=== PATIENT | female | born 1990 | race Hispanic/Latino ===

== ENCOUNTER 2018-06-03 11:26 | Inpatient (IN) | payer OTHER ==
[~2018-06-03] VITALS: Ht 170.2 cm; Wt 69.5 kg
[2018-06-03 14:39] LABS: CLARITY,URINE SL CLOUDY (CLEAR); COLOR,URINE YELLOW (YELLOW); LEUKOCYTE ESTERASE ,URINE TRACE (NEGATIVE); NITRITE,URINE POSITIVE (NEGATIVE); PROTEIN,URINE DIPSTICK 1+ (NEGATIVE)
[2018-06-03 14:40] LABS: BILIRUBIN,URINE NEGATIVE (NEGATIVE); KETONES,URINE NEGATIVE (NEGATIVE); URINE UROBILINOGEN 0.2 mg/dL (0.2 - 1)
[2018-06-03] MEDS ORDERED: ACETAMINOPHEN 325 MG TAB PO ONE (14:45)
[2018-06-03] MEDS ORDERED: PYRIDIUM100 MG PO (14:47)
[2018-06-03] MEDS ORDERED: CEFDINIR300 MG PO (14:47)
[2018-06-03 15:02] LABS: BACTERIA,URINE MANY /HPF; EPITHELIAL CELLS,URINE FEW /LPF; RBC,URINE >50 /HPF (0-5)
[2018-06-03 15:08] LABS: PREGNANCY TEST, URINE NEGATIVE (NEGATIVE)
--- NOTE | 2018-06-03 16:54 | Diagnostic Imaging Report ---
CT Abdomen and Pelvis without contrast INDICATION: Nausea, vomiting, right groin pain. History of appendectomy TECHNIQUE: Thin collimation axial images obtained from the diaphragm to the level of the pubic symphysis without nonionic intravenous contrast. Dose reduction techniques used: Automated exposure control, adjustment of the mAs and/or kVp according to patient size, standardized low-dose protocol, and/or iterative reconstruction technique. RADIATION DOSE: Total DLP: 288.59 mGy*cm Estimated effective dose: (DLP x 0.015 x size factor) mSv CTDIvol has been reviewed. It is below the limits set by the Radiation Protocol Committee (RPC). COMPARISON: None. ABDOMEN FINDINGS: Lung Bases: Clear. The visualized portion of the mediastinum is normal. Liver: Normal in attenuation without mass. Gallbladder: Present and contains a small amount of dependently layering sludge. No calcified gallstones.. No ductal dilatation. Pancreas: Normal attenuation without mass. Spleen: Normal size without mass. Adrenal Glands: Nodular thickening of the right adrenal gland. Attenuation is higher the will be expected for an adenoma. Mild thickening of the left adrenal gland without discrete mass. Kidneys: Right: No evidence of calculus. There is renal edema and mild perinephric inflammation extending around the proximal ureter. No soft tissue mass. Left: Punctate calculus in the upper pole. No cortical mass or hydronephrosis Lymph Nodes: No enlarged abdominal retroperitoneal lymph nodes.. Aorta: Normal in diameter. PELVIS FINDINGS: Bowel: Stomach: Normal. Small Bowel: Normal in caliber with normal wall thickness. Large Bowel: Normal in caliber with normal wall thickness. There are surgical sutures at the base of the cecum. Appendix: Absent. Bladder: Well distended. No mural thickening or evidence of calculus. Ureters: No ureteral dilatation. The right ureter is mildly distended to the common iliac artery. No evidence of calculus. The ureter distal to this is normal in diameter without calculus. The left ureter is normal in diameter throughout its course. No calculus. The uterus is present and normal in morphology. No adnexal mass. Bones: Unremarkable for age. Soft tissues: Unremarkable. IMPRESSION: 1. Edema of the right kidney with perinephric inflammation without fe hydroureteronephrosis or evidence of calculus. Urinary tract infection should be considered. A recently passed stone cannot be excluded. 2. Tiny left intrarenal calculus. No obstructive uropathy. 3. No evidence for bowel obstruction or inflammation. Appendectomy. Signed by: Dr. Klaudia Douglas MD on 06/03/2018 4:51 PM
[2018-06-03] MEDS ORDERED: CEFTRIAXONE SOD 1 GM/NS 50 ML 50 ML IV NR (17:15)
--- NOTE | 2018-06-03 17:16 | NUR ---
PATIENT TO ROOM 4
[2018-06-03] MEDS ORDERED: SODIUM CHLORIDE 0.9% 1000ML 1,000 ML IV STA ×2 (17:25→19:26)
[2018-06-03] MEDS ORDERED: ACETAMINOPHEN 325 MG TAB ONE (17:55)
[2018-06-03 18:41] LABS: BASOPHILS # (AUTO) 0.1 (0.0-0.1); BASOPHILS % 0.3 % (0.0-1.0); EOSINOPHILS # (AUTO) 0.1 (0.0-0.4); EOSINOPHILS % 0.2 % (0.0-6.0); HEMATOCRIT 39.9 % (34.2-44.1); HEMOGLOBIN 13.6 g/dL (12.0-16.0); LYMPHOCYTES # (AUTO) 0.9 (1.0-3.2); LYMPHOCYTES % 4.1 % (18.0-39.1); MEAN CORPUSCULAR HEMOGLOBIN 29.6 pg (28-32); MEAN CORPUSCULAR HGB CONC 34.1 g/dL (31-35); MEAN CORPUSCULAR VOLUME 86.9 fL (81-99); MONOCYTES # (AUTO) 1.3 (0.2-0.8); MONOCYTES % 5.5 % (4.4-11.3); NEUTROPHILS # (AUTO) 20.7 (2.1-6.9); NEUTROPHILS % 89.5 % (38.7-80.0); PLATELET COUNT 255 x10e3/uL (140-360); RED BLOOD COUNT 4.59 x10e6/uL (3.6-5.1); RED CELL DISTRIBUTION WIDTH 12.8 % (11.7-14.4)
--- NOTE | 2018-06-03 18:47 | NUR ---
DR. CARRASQUILLO AT BEDSIDE RE EVALUATING PATIENT. MULIPLE IV ATTEMPTS
[2018-06-03 19:13] LABS: ANION GAP 14.6 mmol/L (8-16); BLOOD UREA NITROGEN 8 mg/dL (7-26); BUN/CREATININE RATIO 12 (6-25); CALCIUM 9.8 mg/dL (8.4-10.2); CARBON DIOXIDE 20 mmol/L (22-29); CHLORIDE 102 mmol/L (98-107); CREATININE, SERUM 0.67 mg/dL (0.57-1.11); EST GLOMERULAR FILTRATION RATE > 60 ML/MIN (60-); GLUCOSE 121 mg/dL (74-118); POTASSIUM 3.6 mmol/L (3.5-5.1); SODIUM 133 mmol/L (136-145)
--- NOTE | 2018-06-03 19:17 | NUR ---
BEDSIDE REPORT TO PATRICIA Rojas
[2018-06-03] MEDS ORDERED: ONDANSETRON HCL INJ 2MG/ML 2ML 2 MG/ML VIAL IV PRN (19:30)
[2018-06-03] MEDS ORDERED: MORPHINE SULFATE INJ 4 MG/ML INJ 1ML IV PRN (19:45)
[2018-06-03] MEDS: CEFTRIAXONE SOD 1 GM/NS 50 ML 50 ML IV SCH ×2 (19:53→21:18)
--- OUTSIDE RECORDS SUMMARY | 2018-06-03 20:04 | XMS REPORT ---
Author Author [facility] Address Unknown Phone Unavailable Care Team Providers Care Clinical Psychologist Licensed Name Role Phone Cheyanne CARRASQUILLO Unavailable Unavailable Problems This patient has no known problems. Allergies, Adverse Reactions, Alerts This patient has no known allergies or adverse reactions. Medications This patient has no known medications. Results Test Description Test Time Test Comments Text Results Atomic Results Result Comments CT ABDOMEN/PELVIS WO 2018-06-03 16:38:[address] [address] Patient Name: LUKAS GONZALEZ MR #: [id number] : 1990 Age/Sex: 27/F Req #: [id number] Adm Physician: Ordered by: MANE MCNULTY ENGINEERING DIRECTOR Report #: [id number] Location: ER Room/Bed: Procedure: [id number] CT/CT ABDOMEN/PELVIS WO Exam Date: 06/03/18 Exam Time: 1553 REPORT STATUS: Signed CT Abdomen and Pelvis without contrast INDICATION: Nausea, vomiting, right groin pain. History of appendectomy TECHNIQUE: Thin collimation axial images obtained from the diaphragm to the level of the pubic symphysis without nonionic intravenous contrast. Dose reduction techniques used: Automated exposure control, adjustment of the mAs and/or kVp according to patient size, standardized low-dose protocol, and/or iterative reconstruction technique. RADIATION DOSE: Total DLP: 288.59 mGy*cm Estimated effective dose: (DLP x 0.015 x size factor) mSv CTDIvol has been reviewed. It is below the limits set by the Radiation Protocol Committee (RPC). COMPARISON: None. ABDOMEN FINDINGS: Lung Bases: Clear. The visualized portion of the mediastinum is normal. Liver: Normal in attenuation without mass. Gallbladder: Present and contains a small amount of dependently layering sludge. No calcified gallstones.. No ductal dilatation. Pancreas: Normal attenuation without mass. Spleen: Normal size without mass. Adrenal Glands: Nodular thickening of the right adrenal gland. Attenuation is higher the will be expected for an adenoma. Mild thickening of the left adrenal gland without discrete mass. Kidneys: Right: No evidence of calculus. There is renal edema and mild perinephric inflammation extending around the proximal ureter. No soft tissue mass. Left: Punctate calculus in the upper pole. No cortical mass or hydronephrosis Lymph Nodes: No enlarged abdominal retroperitoneal lymph nodes.. Aorta: Normal in diameter. PELVIS FINDINGS: Bowel: Stomach: Normal. Small Bowel: Normal in caliber with normal wall thickness. Large Bowel: Normal in caliber with normal wall thickness. There are surgical sutures at the base of the cecum. Appendix: Absent. Bladder: Well distended. No mural thickening or evidence of calculus. Ureters: No ureteral dilatation. The right ureter is mildly distended to the common iliac artery. No evidence of calculus. The ureter distal to this is normal in diameter without calculus. The left ureter is normal in diameter throughout its course. No calculus. The uterus is present and normal in morphology. No adnexal mass. Bones: Unremarkable for age. Soft tissues: Unremarkable. IMPRESSION: 1. Edema of the right kidney with perinephric inflammation without fe hydroureteronephrosis or evidence of calculus. Urinary tract infection should be considered. A recently passed stone cannot be excluded. 2. Tiny left intrarenal calculus. No obstructive uropathy. 3. No evidence for bowel obstruction or inflammation. Appendectomy. Signed by: Dr. Lonnie Douglas MD on 06/03/2018 4:51 PM Dictated By: LONNIE DOUGLAS MD [id number] Transcribed By: HILDA on 06/03/181 COPY TO: MANE MCNULTY NP
[2018-06-03] MEDS ORDERED: no home meds (20:23)
[2018-06-03] MEDS: SODIUM CHLORIDE 0.9% 1000ML 1,000 ML IV SCH (21:17)
[2018-06-03 22:00] VITALS: BP 122/72
[2018-06-03 22:24] LABS: BAND NEUTROPHILS % (MANUAL) 2 %; LYMPHOCYTES % (MANUAL) 6 % (19-48); NEUTROPHILS % (MANUAL) 87 % (40-74)
[2018-06-03 22:25] LABS: MONOCYTES % (MANUAL) 5 % (3.4-9.0); PLATELET CLUMPS FEW; PLATELET ESTIMATE ADEQUATE; PLATELET MORPHOLOGY COMMENT NORMAL; RBC MORPHOLOGY COMMENT NORMAL
[2018-06-03 23:06] VITALS: BP 122/72
[2018-06-04] VITALS (9 sets, daily range): BP systolic 112–120; BP diastolic 58–67
[2018-06-04] MEDS: ACETAMINOPHEN 325 MG TAB PO PRN ×4 (00:40→20:30)
--- NOTE | 2018-06-04 04:06 | NUR ---
At 2200, patient arrived to unit by a stretcher and escorted by MEKA Mcbride. Assisted patient to room comfortable. Oriented to surrounding. Call light within reach. No sob noted. No acute distress noted. Patient in stable condition, will continue to monitor.
[2018-06-04 05:50] LABS: BASOPHILS # (AUTO) 0.1 (0.0-0.1); BASOPHILS % 0.4 % (0.0-1.0); EOSINOPHILS % 0.2 % (0.0-6.0); HEMATOCRIT 36.9 % (34.2-44.1); HEMOGLOBIN 12.2 g/dL (12.0-16.0); LYMPHOCYTES # (AUTO) 1.5 (1.0-3.2); LYMPHOCYTES % 8.7 % (18.0-39.1); MEAN CORPUSCULAR HEMOGLOBIN 29.4 pg (28-32); MEAN CORPUSCULAR HGB CONC 33.1 g/dL (31-35); MEAN CORPUSCULAR VOLUME 88.9 fL (81-99); MONOCYTES % 6.1 % (4.4-11.3); NEUTROPHILS # (AUTO) 14.1 (2.1-6.9); NEUTROPHILS % 84.1 % (38.7-80.0); PLATELET COUNT 297 x10e3/uL (140-360); RED BLOOD COUNT 4.15 x10e6/uL (3.6-5.1)
[2018-06-04 06:16] LABS: ALANINE AMINOTRANSFERASE 15 IU/L (0-55); ALBUMIN 3.3 g/dL (3.5-5.0); ALBUMIN/GLOBULIN RATIO 0.9 (0.8-2.0); ALKALINE PHOSPHATASE 101 IU/L (40-150); ANION GAP 10.4 mmol/L (8-16); BLOOD UREA NITROGEN 5 mg/dL (7-26); BUN/CREATININE RATIO 8 (6-25); CALCIUM 8.5 mg/dL (8.4-10.2); CARBON DIOXIDE 20 mmol/L (22-29); CHLORIDE 111 mmol/L (98-107); CREATININE, SERUM 0.63 mg/dL (0.57-1.11); EST GLOMERULAR FILTRATION RATE > 60 ML/MIN (60-); GLUCOSE 104 mg/dL (74-118); POTASSIUM 3.4 mmol/L (3.5-5.1); SODIUM 138 mmol/L (136-145)
[2018-06-04 06:34] LABS: MAGNESIUM 2.1 MG/DL (1.3-2.1); PHOSPHORUS 2.3 MG/DL (2.3-4.7)
[2018-06-04 06:56] LABS: THYROID STIMULATING HORMONE 1.228 uIU/mL (0.350-4.940)
--- NOTE | 2018-06-04 07:10 | NUR ---
PATIENT ASSISTED TO THE RESTROOM AND BACK TO BED, NO DISTRESS NOTED. IV FLUID INFUSING ORDERED. BED IN LOWER POSITION, CALL LIGHT AT REACH.
[2018-06-04] MEDS: CEFTRIAXONE SOD 1 GM/NS 50 ML 50 ML IV SCH ×2 (08:10→20:44)
[2018-06-04] MEDS: SODIUM CHLORIDE 0.9% 1000ML 1,000 ML IV SCH ×4 (08:46→22:06)
--- NOTE | 2018-06-04 12:00 | NUR ---
PATIENT NOTED WITH TEMPERATURE OF 100.9, PRN TYLENOL GIVEN. TEMP RECHECKED WITH THE READING OF 98.3. WILL CONTINUE TO MONITOR.
--- NOTE | 2018-06-04 13:16 | NUR ---
SPOKE WITH DR YOUNGBLOOD'S WINDLACE MACHINE OPERATOR REGARDING ABNORMAL LAB, NO NEW ORDER RECEIVED.
[2018-06-04] MEDS ORDERED: POTASSIUM CHLORIDE 20 MEQ TAB CR PO NR ×2 (16:01→18:00)
--- NOTE | 2018-06-04 16:02 | NUR ---
DR YOUNGBLOOD IN TO SEE PATIENT. NOTIFIED OF ABNORMAL LAB RESULT, NEW ORDER RECEIVED.
--- NOTE | 2018-06-04 19:38 | NUR ---
RECEIVED PT IN BED AOX3 .DENIES PAIN RESPIRATIONS ARE EVEN AND UNLABORED PT HAS FEVER CALL LIGHT WITH IN REACH .CONTINUE TO MONITOR
[2018-06-05] VITALS (7 sets, daily range): BP systolic 92–123; BP diastolic 60–77
[2018-06-05] MEDS: ACETAMINOPHEN 325 MG TAB PO PRN ×2 (04:10→22:01)
--- NOTE | 2018-06-05 05:33 | NUR ---
TEMPERATURE GOES UP AND DOWN .TEM 100.1 AND GIVEN TYLENOL .FAMILY AT THE BEDSIDE .CALL LIGHT WITH IN REACH.CONTINUE TO MONITOR
[2018-06-05 07:01] LABS: BASOPHILS # (AUTO) 0.1 (0.0-0.1); BASOPHILS % 0.6 % (0.0-1.0); EOSINOPHILS # (AUTO) 0.1 (0.0-0.4); EOSINOPHILS % 1.3 % (0.0-6.0); HEMATOCRIT 35.5 % (34.2-44.1); HEMOGLOBIN 11.6 g/dL (12.0-16.0); LYMPHOCYTES # (AUTO) 1.5 (1.0-3.2); LYMPHOCYTES % 14.3 % (18.0-39.1); MEAN CORPUSCULAR HEMOGLOBIN 28.9 pg (28-32); MEAN CORPUSCULAR HGB CONC 32.7 g/dL (31-35); MEAN CORPUSCULAR VOLUME 88.3 fL (81-99); MONOCYTES % 9.3 % (4.4-11.3); NEUTROPHILS % 74.1 % (38.7-80.0); PLATELET COUNT 254 x10e3/uL (140-360); RED BLOOD COUNT 4.02 x10e6/uL (3.6-5.1); RED CELL DISTRIBUTION WIDTH 13.1 % (11.7-14.4)
[2018-06-05] MEDS: SODIUM CHLORIDE 0.9% 1000ML 1,000 ML IV SCH ×3 (07:15→18:00)
--- NOTE | 2018-06-05 07:19 | NUR ---
REPORT GIVEN TO THE ON COMING NURSE
[2018-06-05 07:24] LABS: ANION GAP 9.3 mmol/L (8-16); BLOOD UREA NITROGEN < 5 mg/dL (7-26); CALCIUM 8.6 mg/dL (8.4-10.2); CARBON DIOXIDE 20 mmol/L (22-29); CHLORIDE 109 mmol/L (98-107); CREATININE, SERUM 0.55 mg/dL (0.57-1.11); EST GLOMERULAR FILTRATION RATE > 60 ML/MIN (60-); GLUCOSE 89 mg/dL (74-118); POTASSIUM 3.3 mmol/L (3.5-5.1); SODIUM 135 mmol/L (136-145)
[2018-06-05 07:30] LABS: BUN/CREATININE RATIO 9 (6-25)
[2018-06-05] MEDS: CEFTRIAXONE SOD 1 GM/NS 50 ML 50 ML IV SCH ×2 (08:30→18:22)
[2018-06-05] MEDS: ASCORBIC ACID 500 MG TAB PO SCH ×2 (08:30→18:00)
--- NOTE | 2018-06-05 08:30 | NUR ---
Pt received resting in bed. Alert and oriented x4 with saline lock #20 in left wrist with fluid infusing. Oriented to staff and surroundings, encouraged to press call james if help needed. Emotional support given. Fall precautions maintained. Will monitor
[2018-06-05] MEDS ORDERED: POTASSIUM CHLORIDE 20 MEQ TAB CR PO ONE (12:15)
[2018-06-05] MEDS: PHENAZOPYRIDINE HCL 100 MG TAB PO SCH ×2 (13:00→18:00)
[2018-06-05 13:40] LABS: CLARITY,URINE SL CLOUDY (CLEAR); COLOR,URINE YELLOW (YELLOW)
[2018-06-05 13:41] LABS: BILIRUBIN,URINE NEGATIVE (NEGATIVE); KETONES,URINE NEGATIVE (NEGATIVE); LEUKOCYTE ESTERASE ,URINE NEGATIVE (NEGATIVE); NITRITE,URINE NEGATIVE (NEGATIVE); PROTEIN,URINE DIPSTICK NEGATIVE (NEGATIVE); URINE UROBILINOGEN 0.2 mg/dL (0.2 - 1)
[2018-06-05 13:51] LABS: EPITHELIAL CELLS,URINE FEW /LPF; RBC,URINE 0-5 /HPF (0-5)
--- NOTE | 2018-06-05 17:50 | Diagnostic Imaging Report ---
Examination: Single AP view of the chest. COMPARISON: None. INDICATION: Intermittent fever, pyelonephritis. IMPRESSION: 1. Lines and Tubes: None 2. Lungs are grossly clear. No consolidation or effusion. 3. Cardiomediastinal silhouette is normal. Pulmonary vasculature is normal. 4. No acute bony abnormalities. Signed by: Dr. Dominic Nunn M.D. on 06/05/2018 5:46 PM
--- NOTE | 2018-06-05 19:31 | NUR ---
Pt resting in bed with family at bedside. Emotional support given. Call james within reach. Endorsed to oncoming nurse.
--- NOTE | 2018-06-05 19:37 | NUR ---
RECEIVE DPT IN BED AOX3 .DENIES PAIN .NO ACUTE DISTRESS NOTED .FAMILY AT THE BEDSIDE .CALL LIGHT WITH IN REACH .CONTINUE TO MONITOR
[2018-06-06] VITALS: BP 117/66
[2018-06-06 03:51] LABS: BASOPHILS # (AUTO) 0.1 (0.0-0.1); BASOPHILS % 0.8 % (0.0-1.0); EOSINOPHILS # (AUTO) 0.2 (0.0-0.4); EOSINOPHILS % 2.2 % (0.0-6.0); HEMATOCRIT 38.4 % (34.2-44.1); HEMOGLOBIN 12.8 g/dL (12.0-16.0); LYMPHOCYTES # (AUTO) 2.5 (1.0-3.2); LYMPHOCYTES % 27.3 % (18.0-39.1); MEAN CORPUSCULAR HEMOGLOBIN 29.2 pg (28-32); MEAN CORPUSCULAR HGB CONC 33.3 g/dL (31-35); MEAN CORPUSCULAR VOLUME 87.5 fL (81-99); MONOCYTES # (AUTO) 1.1 (0.2-0.8); MONOCYTES % 11.6 % (4.4-11.3); NEUTROPHILS # (AUTO) 5.2 (2.1-6.9); NEUTROPHILS % 57.5 % (38.7-80.0); PLATELET COUNT 278 x10e3/uL (140-360); RED BLOOD COUNT 4.39 x10e6/uL (3.6-5.1)
[2018-06-06 04:00] VITALS: BP 110/84
[2018-06-06 04:08] LABS: ANION GAP 10.3 mmol/L (8-16); BLOOD UREA NITROGEN 5 mg/dL (7-26); BUN/CREATININE RATIO 9 (6-25); CALCIUM 8.7 mg/dL (8.4-10.2); CARBON DIOXIDE 19 mmol/L (22-29); CHLORIDE 109 mmol/L (98-107); CREATININE, SERUM 0.54 mg/dL (0.57-1.11); EST GLOMERULAR FILTRATION RATE > 60 ML/MIN (60-); GLUCOSE 90 mg/dL (74-118); LIPASE 5 U/L (8-78); POTASSIUM 3.3 mmol/L (3.5-5.1); SODIUM 135 mmol/L (136-145)
--- NOTE | 2018-06-06 05:53 | NUR ---
PT RESTING .NO ACUTE DISTRESS NOTED .CALL LIGHT WITH IN REACH .CONTINUE TO MONITOR
[2018-06-06] MEDS: CEFTRIAXONE SOD 1 GM/NS 50 ML 50 ML IV SCH (07:13)
[2018-06-06] MEDS: SODIUM CHLORIDE 0.9% 1000ML 1,000 ML IV SCH ×3 (07:13→12:43)
[2018-06-06 08:00] VITALS: BP 118/80
[2018-06-06] MEDS ORDERED: POTASSIUM CHLORIDE 20 MEQ TAB CR PO ONE (08:15)
[2018-06-06 08:45] VITALS: BP 118/80
--- NOTE | 2018-06-06 08:45 | NUR ---
Pt received resting in bed with at bedside. All meds given as ordered. Emotional support given. Call james within reach. Will monitor
[2018-06-06] MEDS: PHENAZOPYRIDINE HCL 100 MG TAB PO SCH ×2 (08:47→12:43)
[2018-06-06] MEDS: ASCORBIC ACID 500 MG TAB PO SCH (08:47)
[2018-06-06 12:00] VITALS: BP 122/76
[2018-06-06] MEDS ORDERED: ASCORBIC ACID500 MG PO (14:00)
[2018-06-06] MEDS ORDERED: PYRIDIUM100 MG PO (14:00)
[2018-06-06] MEDS ORDERED: CEFTIN PO (14:00)
[2018-06-06] MEDS ORDERED: CEFTRIAXONE SOD 1 GM/NS 50 ML 50 ML IV STA (14:08)
--- NOTE | 2018-06-06 14:29 | NUR ---
Pt and family given discharge instructions regarding meds, diet,activities, and follow up appointment. All verbalized understanding of teaching. Pt is getting Stat dose of antibiotic, and will discharge home afterwards
--- NOTE | 2018-06-06 15:19 | NUR ---
Pt left unit in wheelchair to 's car
--- NOTE | 2018-06-06 22:13 | Discharge Summary ---
ADMISSION DIAGNOSES: Acute urinary tract infection with sepsis, gross hematuria, mild abdominal pain, mild hypokalemia, and mild hyponatremia. DISCHARGE DIAGNOSES: Acute urinary tract infection with sepsis, gross hematuria, mild abdominal pain, mild hypokalemia, and mild hyponatremia. HISTORY: The patient has no medical history. SURGICAL HISTORY: Appendectomy. FAMILY HISTORY: The patient's father had diabetes and heart failure. The patient's mother had hypertension. SOCIAL HISTORY: The patient admits to occasional alcohol use. She denies tobacco or illicit drug use. HOSPITAL COURSE: A 27-year-old female, admitted via ER on , complaining of pain in the lower abdomen and sweats that began 06/03/2018. No contributing or alleviating factors. Pain is 10/10 on admission. On admission, the patient was started on IV Rocephin and IV fluids. CT of the abdomen showed edema of the right kidney with perinephric inflammation without fe hydroureteronephrosis or evidence of calculus, tiny left intrarenal calculus, no obstructive uropathy, no evidence of bowel obstruction or inflammation. Chest x-ray was negative. Blood cultures negative. Repeat urine culture negative. After few days on IV Rocephin, the patient is asymptomatic and afebrile. She will discharge home with 4 more days of Ceftin, Pyridium, and ascorbic acid. She will follow up with primary care in 1-2 weeks. The patient and understand discharge instructions and agrees to plan. Vital signs stable, the patient afebrile. SERA Bear/MODL /[id number]
== END 2018-06-06 15:08 | disposition home or self-care (01) | DRG 872 ==
LOC: ER 11:26 → ERHOLD 20:01 → MED/SURG3 22:00 → OBSVTOIN 06-05 14:53
PROVIDERS: ADMIT Internal Medicine; ATTEND Internal Medicine
DX: A41.9 Sepsis, unspecified organism (principal); N30.00 Acute cystitis without hematuria; N10 Acute pyelonephritis; E87.1 Hypo-osmolality and hyponatremia; R31.0 Gross hematuria; Z82.49 Family history of ischemic heart disease and other diseases of the circulatory system; Z83.3 Family history of diabetes mellitus; Z83.511 Family history of glaucoma; E87.6 Hypokalemia
CPT/HCPCS: 36415; 71045; 74176; 80048; 80053; 81001; 81025; 83605; 83690; 83735; 84100; 84443; 85025; 87040; 87086; 96361; 99284; G0378; J0696; J7030